=== PATIENT | male | born 2000 | race Caucasian/White ===

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

== ENCOUNTER 2022-02-09 19:24 | Emergency (ER) | payer OTHER | END 2022-02-09 22:00 | disposition home or self-care (01) | LOC: ED 19:24 | DX: S02.2XXA Fracture of nasal bones, initial encounter for closed fracture (principal); Y08.89XA Assault by other specified means, initial encounter; Y93.89 Activity, other specified; Y92.89 Other specified places as the place of occurrence of the external cause; Y99.8 Other external cause status ==

== ENCOUNTER 2022-07-23 18:25 | Emergency (ER) | payer OTHER ==
[~2022-07-23] VITALS: Wt 99.8 kg
[2022-07-23] MEDS ORDERED: IBUPROFEN600 MG PO (21:22)
[2022-07-23] MEDS ORDERED: VIBRAMYCIN100 MG PO (21:22)
== END 2022-07-23 21:34 | disposition home or self-care (01) ==
LOC: ED 18:25
DX: L02.416 Cutaneous abscess of left lower limb (principal)

== ENCOUNTER 2023-06-04 12:49 | Emergency (ER) | payer OTHER ==
[~2023-06-04] VITALS: Ht 167.6 cm; Wt 95.3 kg
[~2023-06-04 12:49] MED LIST changes: +IBUPROFEN600 MG PO; +VIBRAMYCIN100 MG PO
[2023-06-04] MEDS ORDERED: VIBRAMYCIN100 MG PO (13:15)
== END 2023-06-04 13:17 | disposition home or self-care (01) ==
LOC: ED 12:49
DX: L02.416 Cutaneous abscess of left lower limb (principal); J45.909 Unspecified asthma, uncomplicated

== ENCOUNTER 2023-11-23 07:52 | Emergency (ER) | payer OTHER ==
[~2023-11-23] VITALS: Ht 167.6 cm; Wt 90.7 kg
[2023-11-23] MEDS ORDERED: CIPROFLOX-DEXA7.5 ML OT (08:13)
[2023-11-23] MEDS ORDERED: AMOX-CLAV 875-1 EACH PO (08:13)
== END 2023-11-23 08:22 | disposition home or self-care (01) ==
LOC: ED 07:52
DX: J32.9 Chronic sinusitis, unspecified (principal); H60.92 Unspecified otitis externa, left ear; J45.909 Unspecified asthma, uncomplicated

== ENCOUNTER 2024-06-20 00:52 | Emergency (ER) | payer OTHER ==
[~2024-06-20] VITALS: Ht 170.1 cm; Wt 99.8 kg
[~2024-06-20 00:52] MED LIST changes: +AMOX-CLAV 875-1 EACH PO; +CIPROFLOX-DEXA7.5 ML OT
[2024-06-20] MEDS ORDERED: AMOXICILLIN 500 MG CAP PO ONE (02:00)
[2024-06-20] MEDS ORDERED: Acetaminophen/Hydrocodone 5 MG/325 MG TABLET PO ONE (02:00)
[2024-06-20] MEDS ORDERED: IBU600 M1 PO (02:16)
[2024-06-20] MEDS ORDERED: AMOXICILLIN500 M2 PO (02:16)
== END 2024-06-20 02:37 | disposition home or self-care (01) ==
LOC: ED 00:52
DX: K04.7 Periapical abscess without sinus (principal); J45.909 Unspecified asthma, uncomplicated